=== PATIENT | female | born 1985 ===

== ENCOUNTER 2017-11-30 20:26 | Emergency (ER) | payer OTHER ==
[2017-11-30 20:26] VITALS: BMI 31.5
[2017-11-30 20:49] VITALS: RESP 16; TEMP 97.6; O2SAT 100
[2017-11-30] MEDS ORDERED: Lactated Ringer's 1,000 ML IV STA (21:48)
[2017-11-30] MEDS ORDERED: Dextrose 5%/Lactated Ringer's 1,000 ML IV SCH (22:00)
--- NOTE | 2017-11-30 22:16 | ED PDOC ---
HPI: Abdomen Time Seen by Provider: 11/30/17 21:08 Chief Complaint (Nursing): GI Problem Chief Complaint (Provider): Abdominal pain and diarrhea History Per: Patient History/Exam Limitations: no limitations Onset/Duration Of Symptoms: Days (x1) Current Symptoms Are (Timing): Still Present Quality Of Discomfort: Cramping Associated Symptoms: Chills, Nausea, Diarrhea (watery non bloody), Loss Of Appetite, Other (headache, body pain and generalized weakness). denies: Fever Additional Complaint(s): Balwinder Amato is a 32 year old female, with a past medical history of hypothyroidism, who presents to the emergency department complaining of a diffused crampy abdominal pain and diarrhea onset since last night. Patient reports she had over 10 episodes of watery non bloody diarrhea associated with nausea, decreased appetite, headache, generalized weakness and body pain. Patient is able to tolerate small amounts of food. Patient does report sick contact at home, child also has similar symptoms but no diarrhea. She reports chills but denies any fever or urinary symptoms. No further medical complaints. PMD: [facility] Past Medical History Reviewed: Historical Data, Nursing Documentation, Vital Signs Vital Signs: Last Vital Signs Temp 97.6 F 11/30/17 20:47 Pulse 72 12/01/17 01:02 Resp 16 11/30/17 20:47 BP 100/59 L 12/01/17 01:02 Pulse Ox 100 11/30/17 22:21 - Medical History PMH: Hypothyroidism - Surgical History Surgical History: No Surg Hx - Family History Family History: States: No Known Family Hx - Social History Current smoker - smoking cessation education provided: No Alcohol: None Drugs: Denies - Home Medications Home Medications: Ambulatory Orders Medication Instructions Recorded Multivit/Folic Acid/I 1 tab PO DAILY 05/07/16 [ Plus] Ibuprofen [Motrin Tab] 600 mg PO Q6 PRN #30 tab 05/09/16 Acetaminophen [Tylenol Extra 1,000 mg PO Q6 PRN #100 tablet 12/01/17 Strength] Dicyclomine [Bentyl] 20 mg PO BID PRN #30 tab 12/01/17 Ondansetron ODT [Zofran ODT] 1 odt PO Q6 PRN #20 odt 12/01/17 - Allergies Allergies/Adverse Reactions: Allergies Allergy/AdvReac Type Severity Reaction Status Date / Time No Known Allergies Allergy Verified 11/30/17 20:47 Review of Systems ROS Statement: Except As Marked, All Systems Reviewed And Found Negative Constitutional: Positive for: Chills, Weakness (generalized ), Other (body aches ). Negative for: Fever Gastrointestinal: Positive for: Nausea, Abdominal Pain (crampy), Diarrhea ( watery non bloody ), Other (decreased appetite) Neurological: Positive for: Headache Physical Exam - Reviewed Nursing Documentation Reviewed: Yes Vital Signs Reviewed: Yes - Physical Exam Appears: Positive for: Non-toxic, In Acute Distress Head Exam: Positive for: ATRAUMATIC, NORMOCEPHALIC Skin: Positive for: Normal Color, Warm, Dry Eye Exam: Positive for: Normal appearance Neck: Positive for: Painless ROM Gastrointestinal/Abdominal: Positive for: Tenderness (diffused tenderness to palpation). Negative for: Mass, Guarding, Rebound, Other (Waller's sign and McBurney's point tenderness) Extremity: Positive for: Normal ROM. Negative for: Deformity, Swelling Neurologic/Psych: Positive for: Alert, Oriented - Laboratory Results Result Diagrams: 11/30/17 23:17 11/30/17 23:17 - ECG O2 Sat by Pulse Oximetry: 100 (RA) Pulse Ox Interpretation: Normal Medical Decision Making Medical Decision Making: Initial Impression: Diarrhea. Differential includes but not limited to colitis, enteritis, dehydration, electrolyte abnormality, viral syndrome, influenza Initial Plan: --CMP --Lipase --Urine --Urine dipstick --CBC w/ differential --Bentyl 20 mg PO --Dextrose 5%/Lactated Ringers 1,000 ml IV 100 mls/hr --Lactated Ringers 1,000 ml IV 1,000 mls/hr --Blood culture --Ova and Parasite --Stool culture --Influenza A B --Reevaluation 1230am No clinically significant lab abnormalities Pt feels better, tolerated fluid in ER. Stable for DC. Scribe Attestation: Documented by Jaswant Nash, acting as a scribe for Malaika Iniguez MD Provider Scribe Attestation: All medical record entries made by the Scribe were at my direction and personally dictated by me. I have reviewed the chart and agree that the record accurately reflects my personal performance of the history, physical exam, medical decision making, and the department course for this patient. I have also personally directed, reviewed, and agree with the discharge instructions and disposition. Disposition - Clinical Impression Clinical Impression: Diarrhea, Dehydration Counseled Patient/Family Regarding: Studies Performed, Diagnosis, Need For Followup - Disposition Referrals: [facility] [Provider Group] ([facility] [facility]) Disposition: Routine/Home Disposition Time: 00:30 Condition: IMPROVED Prescriptions: Acetaminophen [Tylenol Extra Strength] 1,000 mg PO Q6 PRN #100 tablet PRN Reason: Headache Dicyclomine [Bentyl] 20 mg PO BID PRN #30 tab PRN Reason: abdominal pain Ondansetron ODT [Zofran ODT] 1 odt PO Q6 PRN #20 odt PRN Reason: Nausea/Vomiting Instructions: Diarrhea in Adolescents and Adults Forms: [facility] ED School/Work Excuse
[2017-11-30 23:23] LABS: BASO % 0.6 % (0.0-2.0); EOS # 0.1 K/uL (0.0-0.7); HEMOGLOBIN 13.2 g/dL (12.0-16.0); LYMPH # 2.2 K/uL (1.0-4.3); LYMPH % 31.8 % (20.0-40.0); MEAN CELL VOLUME 90.1 fl (81.0-99.0); MEAN CORPUSCULAR HEMOGLOBIN 30.6 pg (27.0-31.0); MEAN CORPUSCULAR HGB CONC 33.9 g/dL (33.0-37.0); MEAN PLATELET VOLUME 10.3 fl (7.2-11.7); MONO # 0.8 K/uL (0.0-0.8); NEUT # 3.9 K/uL (1.8-7.0); NEUT % 55.6 % (50.0-75.0); NRBC % 0.1 % (0.0-0.0); RBC 4.32 Mil/uL (3.80-5.20); RED CELL DISTRIBUTION WIDTH 12.7 % (11.5-14.5)
[2017-11-30 23:32] LABS: ALB/GLOB RATIO 1.3 (1.0-2.1); ALBUMIN 4.4 g/dL (3.5-5.0); ALT/SGPT 31 U/L (9-52); AST/SGOT 19 U/L (14-36); BLOOD UREA NITROGEN 8 mg/dl (7-17); CALCIUM 9.8 mg/dL (8.4-10.2); GFR AFRICAN-AMERICAN > 60; GFR NON-AFRICAN AMERICAN > 60; LIPASE 133 U/L (23-300)
[2017-12-01 01:03] VITALS: BP 100/59; PULSE 72
== END 2017-12-01 01:04 | disposition home or self-care (01) ==
LOC: H.ER 20:26
DX: E86.0 Dehydration (principal); R19.7 Diarrhea, unspecified; E03.9 Hypothyroidism, unspecified; Z36.9 Encounter for antenatal screening, unspecified
CPT/HCPCS: 80053; 81025; 83690; 85025; 87040; 87804; 96360; 96361; 99285; J7120